=== PATIENT | female | born 1975 | race Caucasian/White ===

== ENCOUNTER 2023-01-20 13:39 | Emergency (ER) | payer OTHER ==
[2023-01-20] MEDS ORDERED: predniSONE 10 MG Tab ONE (14:30)
[2023-01-20 15:21] VITALS: BP 145/95; PULSE 95
== END 2023-01-20 14:40 | disposition home or self-care (01) ==
LOC: LB.ED 13:39
DX: L29.9 Pruritus, unspecified (principal); E03.9 Hypothyroidism, unspecified; E66.9 Obesity, unspecified; Z86.16 Personal history of COVID-19; Z79.899 Other long term (current) drug therapy; Z88.5 Allergy status to narcotic agent
CPT/HCPCS: 99283; J7512

== ENCOUNTER 2025-01-14 10:46 | Day surgery (SDC) | payer OTHER ==
[2025-01-14] MEDS ORDERED: Propofol 200 MG/20 ML SDV ONE (14:00)
[2025-01-14 14:16] VITALS: BP 117/65; PULSE 56
== END 2025-01-14 15:00 | disposition home or self-care (01) ==
LOC: LB.SDS 10:46
PROVIDERS: ATTEND Surgery
DX: Z12.11 Encounter for screening for malignant neoplasm of colon (principal); D12.5 Benign neoplasm of sigmoid colon; K63.5 Polyp of colon; E03.9 Hypothyroidism, unspecified; Z80.0 Family history of malignant neoplasm of digestive organs; Z88.5 Allergy status to narcotic agent; Z86.16 Personal history of COVID-19; Z79.899 Other long term (current) drug therapy
CPT/HCPCS: 88305; J2704; J7030